=== PATIENT | female | born 1975 | race Caucasian/White ===

== ENCOUNTER 2017-06-19 15:30 | Emergency (ER) | payer MEDICAID ==
[~2017-06-19] VITALS: Ht 152.4 cm; Wt 111.0 kg
[~2017-06-19 15:30] MED LIST: CYCL-1 PO; DEXL60CA3 PO; FAMO20TA44 PO; METH500T PO; OMEP20CA10 PO; ONDA4TAB6 PO; PROC-8 PO
[2017-06-19] MEDS ORDERED: morphine 4 MG/ML inj SYRINge IV ONE ×2 (15:55→16:45)
[2017-06-19] MEDS ORDERED: normal saline 1000ML IV soln IVB ONE (15:55)
[2017-06-19 16:25] LABS: BASOPHILS # (AUTO) 0.1 X10'3 (0-0.2); BASOPHILS % (AUTO) 0.6 % (0-1); EOSINOPHILS # (AUTO) 0.2 X10'3 (0-0.9); EOSINOPHILS % (AUTO) 3.1 % (0-6); HEMATOCRIT 37.1 % (35.0-45.0); HEMOGLOBIN 13.2 g/dl (12.0-16.0); LYMPHOCYTES # (AUTO) 2.9 X10'3 (1.1-4.8); LYMPHOCYTES % (AUTO) 36.5 % (21-51); MEAN CORPUSCULAR HEMOGLOBIN 31.2 PG (27.0-31.0); MEAN CORPUSCULAR HGB CONC 35.5 % (33.0-36.5); MEAN CORPUSCULAR VOLUME 87.7 FL (78-98); MEAN PLATELET VOLUME 7.9 FL (7.4-10.4); MONOCYTES # (AUTO) 0.4 X10'3 (0-0.9); MONOCYTES % (AUTO) 5.4 % (2-12); NEUTROPHILS # (AUTO) 4.3 X10'3 (1.8-7.7); NEUTROPHILS % (AUTO) 54.4 % (42-75); PLATELET COUNT 348 X10'3 (140-440); RED BLOOD COUNT 4.23 X10'6 (4.20-5.60); RED CELL DISTRIBUTION WIDTH 12.3 % (11.5-14.5); WHITE BLOOD COUNT 7.9 X10'3 (4.5-11.0)
[2017-06-19 16:38] LABS: ALANINE AMINOTRANSFERASE 25 U/L (12-78); ALBUMIN 3.7 G/DL (3.4-5.0); ALKALINE PHOSPHATASE 90 IU/L (46-116); ANION GAP 9 (8-16); ASPARTATE AMINO TRANSFERASE 15 U/L (10-37); BILIRUBIN,TOTAL 0.3 MG/DL (0.1-1.0); BLOOD UREA NITROGEN 13 MG/DL (7-18); BUN/CREATININE RATIO 20.3 (6.6-38.0); CALCIUM 8.7 MG/DL (8.5-10.1); CHLORIDE 104 MMOL/L (99-107); CREATININE 0.64 MG/DL (0.40-0.90); GLUCOSE 107 MG/DL (70-104); SODIUM 138 MMOL/L (135-145); TOTAL CARBON DIOXIDE 25.5 MMOL/L (24-32); TOTAL PROTEIN 7.3 G/DL (6.4-8.2); eGFR > 90 ML/MIN
[2017-06-19] MEDS ORDERED: ketorolac trometh. 30mg/ml inj. IV ONE (16:45)
[2017-06-19] MEDS ORDERED: LORazepam 2 mg/ml vial IV ONE (16:45)
[2017-06-19] MEDS ORDERED: HYDR-569 PO (18:42)
[2017-06-19 18:56] VITALS: BP 125/75
== END 2017-06-19 18:57 | disposition home or self-care (01) ==
LOC: ER 15:30
DX: S13.4XXA Sprain of ligaments of cervical spine, initial encounter (principal); S20.20XA Contusion of thorax, unspecified, initial encounter; K21.9 Gastro-esophageal reflux disease without esophagitis; G89.29 Other chronic pain; M19.90 Unspecified osteoarthritis, unspecified site; M06.9 Rheumatoid arthritis, unspecified; Z90.49 Acquired absence of other specified parts of digestive tract; Z79.899 Other long term (current) drug therapy; Z56.0 Unemployment, unspecified; V49.88XA Car occupant (driver) (passenger) injured in other specified transport accidents, initial encounter; Y93.89 Activity, other specified; Y92.488 Other paved roadways as the place of occurrence of the external cause; Y99.8 Other external cause status
CPT/HCPCS: 36415; 71045; 71250; 72125; 80053; 85025; 93005; 96361; 96374; 96375; 96376; 99285; J1885; J2060; J2270; J7030

== ENCOUNTER 2020-10-26 01:36 | Emergency (ER) | payer MEDICAID ==
[~2020-10-26] VITALS: Ht 152.4 cm; Wt 113.2 kg
[~2020-10-26 01:36] MED LIST changes: +HYDR-4383 PO; -OMEP20CA10 PO; +OMEP20CA15 PO
[2020-10-26 01:59] LABS: BASOPHILS # (AUTO) 0.1 X10'3 (0-0.2); BASOPHILS % (AUTO) 1.2 % (0-1); EOSINOPHILS # (AUTO) 0.2 X10'3 (0-0.9); EOSINOPHILS % (AUTO) 2.2 % (0-6); HEMATOCRIT 41.4 % (35.0-45.0); HEMOGLOBIN 14.2 g/dl (12.0-16.0); LYMPHOCYTES # (AUTO) 3.5 X10'3 (1.1-4.8); LYMPHOCYTES % (AUTO) 39.3 % (21-51); MEAN CORPUSCULAR HEMOGLOBIN 30.7 PG (27.0-31.0); MEAN CORPUSCULAR HGB CONC 34.3 g/dL (33.0-36.5); MEAN CORPUSCULAR VOLUME 89.7 FL (78-98); MEAN PLATELET VOLUME 8.5 FL (7.4-10.4); MONOCYTES # (AUTO) 0.6 X10'3 (0-0.9); MONOCYTES % (AUTO) 6.5 % (2-12); NEUTROPHILS # (AUTO) 4.5 X10'3 (1.8-7.7); NEUTROPHILS % (AUTO) 50.8 % (42-75); PLATELET COUNT 313 X10'3 (140-440); RED BLOOD COUNT 4.62 X10'6 (4.20-5.60); RED CELL DISTRIBUTION WIDTH 12.9 % (11.5-14.5); WHITE BLOOD COUNT 8.9 X10'3 (4.5-11.0)
[2020-10-26 02:11] LABS: ALANINE AMINOTRANSFERASE 73 U/L (12-78); ALBUMIN 3.6 G/DL (3.4-5.0); ALBUMIN/GLOBULIN RATIO 0.9 (1.1-1.5); ALKALINE PHOSPHATASE 93 IU/L (46-116); ANION GAP 6 (8-16); ASPARTATE AMINO TRANSFERASE 55 U/L (10-37); BILIRUBIN,TOTAL 0.3 MG/DL (0.1-1.0); BLOOD UREA NITROGEN 13 MG/DL (7-18); BUN/CREATININE RATIO 16.3 (6.6-38.0); CALCIUM 8.7 MG/DL (8.5-10.1); CHLORIDE 104 MMOL/L (99-107); GLUCOSE 174 MG/DL (70-104); POTASSIUM 3.9 MMOL/L (3.5-5.1); SODIUM 140 MMOL/L (135-145); TOTAL CARBON DIOXIDE 29.7 MMOL/L (24-32); TOTAL PROTEIN 7.5 G/DL (6.4-8.2); eGFR 77 ML/MIN
[2020-10-26 02:20] LABS: TROPONIN I < 0.04 NG/ML (0.0-0.05)
[2020-10-26 03:48] VITALS: BP 142/58
[2020-10-26] MEDS ORDERED: DIAZ-351 PO (04:28)
[2020-10-26] MEDS ORDERED: METH-797 PO (04:28)
[2020-10-26] MEDS ORDERED: diazepam 5mg tablet PO ONE (04:35)
[2020-10-26] MEDS ORDERED: ketorolac tromethamine 15mg/ml inj. IM ONE (04:35)
== END 2020-10-26 04:58 | disposition home or self-care (01) ==
LOC: ER 01:36
DX: S16.1XXA Strain of muscle, fascia and tendon at neck level, initial encounter (principal); S29.019A Strain of muscle and tendon of unspecified wall of thorax, initial encounter; M54.2 Cervicalgia; M62.838 Other muscle spasm; M25.512 Pain in left shoulder; M25.511 Pain in right shoulder; G43.909 Migraine, unspecified, not intractable, without status migrainosus; K21.9 Gastro-esophageal reflux disease without esophagitis; G89.29 Other chronic pain; F32.9 Major depressive disorder, single episode, unspecified; Z87.11 Personal history of peptic ulcer disease; Z87.440 Personal history of urinary (tract) infections; Z90.49 Acquired absence of other specified parts of digestive tract; Z98.890 Other specified postprocedural states; Z56.0 Unemployment, unspecified; Z79.899 Other long term (current) drug therapy; X58.XXXA Exposure to other specified factors, initial encounter; Y93.89 Activity, other specified; Y92.89 Other specified places as the place of occurrence of the external cause; Y99.8 Other external cause status
CPT/HCPCS: 36415; 71045; 80053; 83880; 84484; 85025; 93005; 96372; 99285; J1885

== ENCOUNTER 2021-12-19 23:57 | Emergency (ER) | payer MEDICAID ==
[~2021-12-19] VITALS: Ht 152.4 cm; Wt 113.2 kg
[~2021-12-19 23:57] MED LIST changes: +DIAZ-351 PO; +METH-797 PO
[2021-12-20 00:46] LABS: BASOPHILS # (AUTO) 0.1 X10'3 (0-0.2); BASOPHILS % (AUTO) 0.9 % (0-1); EOSINOPHILS # (AUTO) 0.2 X10'3 (0-0.9); EOSINOPHILS % (AUTO) 1.8 % (0-6); HEMATOCRIT 38.3 % (35.0-45.0); HEMOGLOBIN 13.6 g/dl (12.0-16.0); LYMPHOCYTES # (AUTO) 4.9 X10'3 (1.1-4.8); LYMPHOCYTES % (AUTO) 45.2 % (21-51); MEAN CORPUSCULAR HEMOGLOBIN 30.2 PG (27.0-31.0); MEAN CORPUSCULAR HGB CONC 35.5 g/dL (33.0-36.5); MEAN CORPUSCULAR VOLUME 85.1 FL (78-98); MEAN PLATELET VOLUME 7.9 FL (7.4-10.4); MONOCYTES # (AUTO) 0.6 X10'3 (0-0.9); MONOCYTES % (AUTO) 5.2 % (2-12); NEUTROPHILS # (AUTO) 5.1 X10'3 (1.8-7.7); NEUTROPHILS % (AUTO) 46.9 % (42-75); PLATELET COUNT 326 X10'3 (140-440); RED CELL DISTRIBUTION WIDTH 13.2 % (11.5-14.5); WHITE BLOOD COUNT 10.8 X10'3 (4.5-11.0)
[2021-12-20 00:49] LABS: CLARITY,URINE CLEAR (Clear); COLOR,URINE YELLOW (Yellow); GLUCOSE, URINE NEGATIVE (Neg); KETONES,URINE NEGATIVE (Neg); LEUKOCYTE ESTERASE ,URINE NEGATIVE (Neg); NITRITES, URINE NEGATIVE (Neg); OCCULT BLOOD,URINE NEGATIVE (Neg); PH,URINE 7.5 (4.8-8.0); PROTEIN,URINE NEGATIVE (Neg); URINE HCG NEGATIVE (NEG)
[2021-12-20 00:54] LABS: UA COLLECTION TYPE CLN CATCH MIDSTREAM
[2021-12-20 01:01] LABS: ALANINE AMINOTRANSFERASE 39 U/L (12-78); ALBUMIN 3.7 G/DL (3.4-5.0); ALBUMIN/GLOBULIN RATIO 0.9 (1.1-1.5); ALKALINE PHOSPHATASE 135 IU/L (46-116); ANION GAP 9 (8-16); ASPARTATE AMINO TRANSFERASE 22 U/L (10-37); BILIRUBIN,TOTAL 0.4 MG/DL (0.1-1.0); BLOOD UREA NITROGEN 20 MG/DL (7-18); BUN/CREATININE RATIO 24.1 (6.6-38.0); CALCIUM 8.6 MG/DL (8.5-10.1); CHLORIDE 103 MMOL/L (99-107); CREATININE 0.83 MG/DL (0.40-0.90); GLUCOSE 142 MG/DL (70-104); LIPASE 102 U/L (73-393); SODIUM 140 MMOL/L (135-145); TOTAL PROTEIN 7.8 G/DL (6.4-8.2); eGFR 74 ML/MIN
[2021-12-20] MEDS: morphine 4 MG/ML inj SYRINge IV ONE (01:25)
[2021-12-20] MEDS: ondansetron/PF 4mg/2ml inj IV ONE (01:27)
[2021-12-20] MEDS ORDERED: ONDA4TAB12 PO (03:11)
[2021-12-20] MEDS ORDERED: MELO-100 PO (03:11)
[2021-12-20] MEDS ORDERED: LOPE2CAP PO (03:11)
[2021-12-20] MEDS: HYDROcodone/acetaminophen 5mg/325mg tablet PO ONE (03:32)
[2021-12-20] MEDS: ketorolac trometh. 30mg/ml inj. IV ONE (03:32)
[2021-12-20 03:50] VITALS: BP 109/71
== END 2021-12-20 03:52 | disposition home or self-care (01) ==
LOC: ER 23:58
DX: R10.32 Left lower quadrant pain (principal); R11.0 Nausea; R19.7 Diarrhea, unspecified; G43.909 Migraine, unspecified, not intractable, without status migrainosus; K21.9 Gastro-esophageal reflux disease without esophagitis; G89.29 Other chronic pain; F32.A Depression, unspecified; Z87.11 Personal history of peptic ulcer disease; Z87.440 Personal history of urinary (tract) infections; Z90.49 Acquired absence of other specified parts of digestive tract; Z98.890 Other specified postprocedural states; Z56.0 Unemployment, unspecified; Z79.899 Other long term (current) drug therapy
CPT/HCPCS: 36415; 74176; 80053; 81003; 81025; 83690; 85025; 96374; 96375; 99284; J1885; J2270; J2405

== ENCOUNTER 2022-11-29 18:16 | Emergency (ER) | payer MEDICAID ==
[~2022-11-29] VITALS: Ht 152.4 cm; Wt 115.2 kg
[~2022-11-29 18:16] MED LIST changes: +LOPE2CAP PO; +MELO-100 PO; +ONDA4TAB12 PO
[2022-11-29 18:57] VITALS: BP 142/74; TEMP 97.2; O2SAT 98
[2022-11-29] MEDS ORDERED: ketorolac tromethamine 15mg/ml inj. IM ONE (19:45)
[2022-11-29 20:13] VITALS: RESP 18
--- NOTE | 2022-11-29 20:16 | NUR ---
2ML IN RIGHT DELTOID OF TORADOL 2ML IN LEFT DELTOID
[2022-11-29] MEDS ORDERED: NAPR-1154 PO (20:28)
[2022-11-29] MEDS ORDERED: CYCL-394 PO (20:28)
[2022-11-29] MEDS ORDERED: cyclobenzaprine 10mg tablet PO ONE (20:40)
== END 2022-11-29 20:54 | disposition home or self-care (01) ==
LOC: ER 18:17
DX: M54.59 Other low back pain (principal); M25.561 Pain in right knee; W19.XXXA Unspecified fall, initial encounter; Y93.89 Activity, other specified; Y92.89 Other specified places as the place of occurrence of the external cause; Y99.8 Other external cause status
CPT/HCPCS: 72100; 73564; 96372; 99284; J1885; 99285

== ENCOUNTER 2022-11-30 08:23 | Emergency (ER) | payer MEDICAID ==
[~2022-11-30] VITALS: Ht 152.4 cm; Wt 115.2 kg
[~2022-11-30 08:23] MED LIST changes: +CYCL-394 PO; +NAPR-1154 PO
[2022-11-30 08:30] VITALS: BP 161/89; PULSE 90; O2SAT 99
[2022-11-30] MEDS ORDERED: ondansetron/PF 4mg/2ml inj IV ONE (10:00)
[2022-11-30] MEDS ORDERED: morphine 4 MG/ML inj SYRINge IV ONE ×2 (10:00→11:40)
[2022-11-30 11:44] VITALS: RESP 20
== END 2022-11-30 12:02 | disposition home or self-care (01) ==
LOC: ER 08:23
DX: M54.50 Low back pain, unspecified (principal); G43.909 Migraine, unspecified, not intractable, without status migrainosus; K21.9 Gastro-esophageal reflux disease without esophagitis; Z79.899 Other long term (current) drug therapy; Z79.2 Long term (current) use of antibiotics; Z90.49 Acquired absence of other specified parts of digestive tract; Z56.0 Unemployment, unspecified
CPT/HCPCS: 96374; 96375; 96376; 99284; J2270; J2405

== ENCOUNTER 2024-03-08 19:52 | Emergency (ER) | payer MEDICAID ==
[~2024-03-08] VITALS: Ht 152.4 cm; Wt 102.3 kg
[~2024-03-08 19:52] MED LIST changes: -CYCL-394 PO; +ONDA-243 PO; -ONDA4TAB12 PO
[2024-03-08] MEDS: LORazepam 2 mg/ml vial IV ONE (20:15)
[2024-03-08 20:23] LABS: BASOPHILS # (AUTO) 0.1 X10'3 (0-0.2); EOSINOPHILS # (AUTO) 0.1 X10'3 (0-0.9); HEMOGLOBIN 14.2 g/dl (12.0-16.0); MONOCYTES # (AUTO) 0.4 X10'3 (0-0.9)
[2024-03-08 20:24] LABS: BASOPHILS % (AUTO) 1.1 % (0-1); EOSINOPHILS % (AUTO) 1.8 % (0-6); HEMATOCRIT 41.7 % (35.0-45.0); LYMPHOCYTES # (AUTO) 4.7 X10'3 (1.1-4.8); LYMPHOCYTES % (AUTO) 59.4 % (21-51); MEAN CORPUSCULAR HEMOGLOBIN 29.7 PG (27.0-31.0); MEAN CORPUSCULAR HGB CONC 34.2 g/dL (33.0-36.5); MEAN CORPUSCULAR VOLUME 86.8 FL (78-98); MEAN PLATELET VOLUME 8.6 FL (7.4-10.4); MONOCYTES % (AUTO) 4.7 % (2-12); NEUTROPHILS # (AUTO) 2.6 X10'3 (1.8-7.7); PLATELET COUNT 334 X10'3 (140-440); RED CELL DISTRIBUTION WIDTH 13.1 % (11.5-14.5); WHITE BLOOD COUNT 7.9 X10'3 (4.5-11.0)
[2024-03-08 20:34] LABS: ALANINE AMINOTRANSFERASE 24 U/L (12-78); ALBUMIN 3.7 G/DL (3.4-5.0); ALBUMIN/GLOBULIN RATIO 0.9 (1.1-1.5); ALKALINE PHOSPHATASE 113 IU/L (46-116); ANION GAP 12 (8-16); ASPARTATE AMINO TRANSFERASE 15 U/L (10-37); BILIRUBIN,TOTAL 0.7 MG/DL (0.1-1.0); BLOOD UREA NITROGEN 10 MG/DL (7-18); BUN/CREATININE RATIO 11.8 (10.0-20.0); CALCIUM 9.3 MG/DL (8.5-10.1); CHLORIDE 103 MMOL/L (99-107); CREATININE 0.85 MG/DL (0.40-0.90); GLUCOSE 122 MG/DL (70-104); POTASSIUM 3.5 MMOL/L (3.5-5.1); SODIUM 137 MMOL/L (135-145); TOTAL CARBON DIOXIDE 22.1 MMOL/L (24-32); TOTAL PROTEIN 7.7 G/DL (6.4-8.2); eCRCL 58 ML/MIN; eGFR 71 ML/MIN
[2024-03-08 20:42] LABS: PRO BRAIN NATRIURETIC PEPTIDE < 30 PG/ML (0-125)
[2024-03-08 21:01] VITALS: PULSE 78; RESP 17
[2024-03-08] MEDS: ipratropium/albuterol 3ml nebule NEB ONE (21:01)
[2024-03-08 21:03] LABS: PLATELET ESTIMATE NORMAL; TOTAL CELLS COUNTED 100
[2024-03-08 21:06] VITALS: PULSE 75; RESP 16; O2SAT 99
[2024-03-08 21:31] LABS: STREP A SCREEN NEGATIVE (Neg)
[2024-03-08 21:52] VITALS: TEMP 98.1
[2024-03-08] MEDS ORDERED: PRED20TA PO (22:44)
[2024-03-08 22:54] VITALS: BP 137/94; PULSE 85; RESP 16; O2SAT 100
== END 2024-03-08 22:53 | disposition home or self-care (01) ==
LOC: ER 19:52
DX: R07.89 Other chest pain (principal); R06.00 Dyspnea, unspecified; J45.909 Unspecified asthma, uncomplicated; K21.9 Gastro-esophageal reflux disease without esophagitis; Z88.6 Allergy status to analgesic agent; Z88.8 Allergy status to other drugs, medicaments and biological substances; Z87.11 Personal history of peptic ulcer disease; Z87.440 Personal history of urinary (tract) infections; Z90.49 Acquired absence of other specified parts of digestive tract; Z20.822 Contact with and (suspected) exposure to COVID-19
CPT/HCPCS: 36415; 71045; 80053; 83880; 84484; 85007; 85025; 87081; 87811; 87880; 93005; 94640; 96374; 99285; J2060; 94760

== ENCOUNTER 2024-12-02 20:44 | Emergency (ER) | payer BC, MEDICAID ==
[~2024-12-02] VITALS: Ht 152.4 cm; Wt 95.8 kg
[~2024-12-02 20:44] MED LIST changes: -FAMO20TA44 PO; -HYDR-4383 PO; -LOPE2CAP PO; -METH-797 PO; -METH500T PO; -ONDA-243 PO; -ONDA4TAB6 PO; -PROC-8 PO
--- NOTE | 2024-12-02 21:13 | Physician Documentation ---
History of Present Illness ~ Chief Complaint: Weakness Stated Complaint: SHAKING Time Seen by MD: 20:59 Primary Medical Doctor: [facility] HPI This is a very pleasant 49-year-old female who presented for evaluation of new onset tremors for the last three days. No obvious trigger provocation. Tremors appear to be worse when she is attempting to do something. The particular palliating factors. Did not attempt to treat it. No recent medication change, does have history of diabetes but has been history of kidney disease. Was on baclofen but was switched off a month ago. No history of Parkinson's, no head trauma, no focal deficits. Reports bilateral lower extremity weakness. Medication Reconciliation Allergies: Coded Allergies: No Known Allergies (Unverified , 12/02/24) Scheduled Dexlansoprazole (Dexilant), 60 MG PO DAILY, (Reported) Meloxicam* (Meloxicam*), 1 TAB PO DAILY Naproxen (Naprosyn), 1 TAB PO Q12H Omeprazole (Omeprazole), 2 CAP PO BIDAC Scheduled PRN Cyclobenzaprine* (Cyclobenzaprine*), 1 TABLET PO Q8H PRN for muscle spasms Diazepam (Diazepam), 5 MG PO q8h prn PRN for muscle spasms Past Medical History Past Medical History: Headache, Migraine, GERD, Peptic Ulcer Disease, UTI, Chronic Back Pain, Osteoarthritis, Rheumatoid Arthritis, Depression Past Surgical History: cholecystectomy, Alcohol Use: None Drug Use: none Lives In: Home Occupation: unemployed Review of Systems ROS 10 point review of systems was performed and unless noted above in HPI is negative for acute process/complaint. Physical Exam Vital Signs: Temperature: 96.2, Source: Temporal, Heart Rate: 78, Respiratory Rate: 15, BP: 148/97, Pulse Oximetry: 97, Weight: 95.850 General Appearance GENERAL: Awake, alert, oriented, GCS 15, no apparent distress, non-toxic appearing, answers questions, follows commands appropriately. Examined in triage HEENT: Atraumatic, normocephalic, pupils equal, extraocular muscles intact, sclerae anicteric, mucus membranes moist, oropharynx is clear, no stridor. NECK: supple, full active range of motion, trachea midline, no thyromegaly, no lymphadenopathy, no JVD. CARDIOVASCULAR: regular rate/rhythm, no murmurs/gallops/rubs, Pulses are 2+ in all extremities and symmetric. Capillary refill less than 2 seconds. PULMONARY: Nonlabored, good air movement ,no respiratory distress, speaking in full sentences, clear to auscultation bilaterally, no wheezing, no ronchi, no rales, no accessory muscle use. GASTROINTESTINAL: Soft, non-tender, non-distended, normal active bowel sounds, no organomegaly, no pulsatile masses, no CVA tenderness. NEUROLOGIC: Bilateral upper extremity and head very coarse tremor noted. Lucid with normal mental status. Normal facial symmetry. Moves all extremities symmetrically and with purpose. No truncal ataxia. Speech is fluid without evidence of dysarthria or aphasia, no focal deficits appreciated. MUSCULOSKELETAL: There is full range of motion of all extremities. There is no joint pain or joint swelling or joint erythema. There is no muscle pain or tenderness or swelling. EXTREMITIES: warm, well-perfused, no cyanosis, no clubbing, no edema, no acute deformities. Skin: warm, dry, no rashes or lesions, no jaundice, no petechiae orpurpura. No ecchymosis. PSYCHIATRIC: Normal affect, normal insight, normal concentration. Focused exam: [] Progress Results/Orders Results/Orders Orders - SERGO STEWART DO Urinalysis, Cult If Indicated (12/02/24 20:59) Ct Head (12/02/24 20:59) Drug Screen, Urine (12/02/24 20:59) [facility] Prov.Neuro Consult (12/03/24 00:30) Completed Orders - SERGO STEWART DO Electrocardiogram (12/02/24 20:59) Cbc/Diff (12/02/24 20:59) ESR (12/02/24 20:59) LDH (12/02/24 20:59) C-Reactive Protein (12/02/24 20:59) PHOS (12/02/24 20:59) MG (12/02/24 20:59) TSH (12/02/24 20:59) Free T4 (12/02/24 20:59) Hcg Serum Ql (12/02/24 20:59) Ct Head (12/02/24 20:59) Hs Troponin I W Calculations (12/02/24 20:59) CMP (12/02/24 20:59) Ethanol (12/02/24 20:59) Vital Signs 12/02/24 12/02/24 12/02/24 20:53 23:12 23:16 Temp 96.2 98.3 Pulse 78 80 Resp 15 16 16 B/P (MAP) 148/97 114/76 (89) Pulse Ox 97 98 O2 Flow Rate 0 Laboratory Tests Test 12/02/24 21:08 White Blood Count 9.2 Red Blood Count 4.89 Hemoglobin 14.5 Hematocrit 41.3 Mean Corpuscular Volume 84.5 Mean Corpuscular Hemoglobin 29.6 Mean Corpuscular Hemoglobin Concent 35.1 Red Cell Distribution Width 13.4 Platelet Count 321 Mean Platelet Volume 8.5 Neutrophils (%) (Auto) 46.7 Lymphocytes (%) (Auto) 44.1 Monocytes (%) (Auto) 5.1 Eosinophils (%) (Auto) 2.9 Basophils (%) (Auto) 1.2 H Neutrophils # (Auto) 4.3 Lymphocytes # (Auto) 4.1 Monocytes # (Auto) 0.5 Eosinophils # (Auto) 0.3 Basophils # (Auto) 0.1 CBC Comment Erythrocyte Sedimentation Rate 16 Sodium Level 135 Potassium Level 4.2 Chloride Level 102 Carbon Dioxide Level 27.3 Anion Gap 6 L Blood Urea Nitrogen 19 H Creatinine 0.66 Estimated GFR/1.73 m2 > 90 BUN/Creatinine Ratio 28.8 H Glucose Level 106 H Calcium Level 8.8 Phosphorus Level 3.8 Magnesium Level 1.8 Total Bilirubin 0.4 Aspartate Amino Transf (AST/SGOT) 16 Alanine Aminotransferase (ALT/SGPT) 24 Alkaline Phosphatase 116 Lactate Dehydrogenase 173 Troponin I High Sensitivity 7 C-Reactive Protein 0.22 Total Protein 7.3 Albumin 3.5 Globulin 3.8 Albumin/Globulin Ratio 0.9 L Thyroid Stimulating Hormone (TSH) 1.06 Free Thyroxine 0.78 Human Chorionic Gonadotropin, Qual Negative Chemistry Comments Ethyl Alcohol Level < 10 Medical Decision Making Findings Facility Status: [facility], [facility] process The plan was discussed with the patient, who demonstrates clear understanding of the plan and is in agreement with the plan unless otherwise noted in the chart. All questions have been answered, all concerns were addressed unless otherwise documented. I was available throughout their ED stay for frequent reassessment and questions. Differential Diagnoses (considered and possible or likely): [New onset Parkinson's, brain tumor, electrolyte derangement, uremia, less likely drug toxidrome or alcohol withdrawal, baclofen withdrawal has been considerably has been over a month. Essential tremor had also been considered.] ??Differential Diagnoses (considered and unlikely, not requiring evaluation currently): [No evidence of lateralizing sinuses suspect a stroke] MDM Data Please see HPI for the following: Independent Historians and external Records Review. Historian: [Patient] Independent Historians: ?[Record review] Medication Management: [Reviewed medication list] Social History and determinants: [Reviewed] Please see the body of the note for the following: Any independent interpretations of ECG, imaging studies. All vitals signs/haemodynamics, ordered tests were independently reviewed and interpreted by myself. Nursing triage complaint and vitals reviewed, additional nursing notes were reviewed as available and I agree unless otherwise noted or documented in contradiction in the chart Vital Signs: Independently reviewed Labs: Independently interpreted Imaging: Independently interpreted Old Medical Records: Independently reviewed, see [facility] for relevant summary and information Pulse Oximetry: [95%] interpreted as [normal on room air] by me Additionally notably showing: [Hemodynamics reviewed. The patient is not febrile, not tachycardic, no evidence of hypotension respiratory distress. Laboratory studies reviewed. CBC is normal. ESR is not elevated at 16. Chemistry shows dehydration. CRP is normal. TSH and free T4 normal. She is not . Troponin is negative. Ethanol is negative. CT head was obtained showing no acute intracranial abnormality.] Tests considered but not ordered include: [MRI can be done on an inpatient/outpatient basis] Social Determinants of Health Impact: Patient was [facility] [place] to healthcare due to below par ratio of patient to medical providers. [] Comorbid Conditions Impacting Present Evaluation and Care/Treatment: [Diabetes] Management Discussions with other Healthcare Providers: [Tele neurology who examined the patient and feel that she is appropriate for outpatient follow-up and this are likely physiologic tremors] Treatment and Disposition Medication Management (Given or considered): []. See EMR for details Consideration for Hospitalization/Escalation/Deescalation of Care: Admission for observation has been considered, [however the patient is able to tolerate p.o., their symptoms are controlled, they are able to rely on oral medications, and their chief complaint/diagnosis can be managed on outpatient basis.] ?ED Course:?[No clinical deterioration or improvement] ?Shared decision making:?[Patient is hemodynamically stable for discharge home with follow with their primary care provider. [ ] Specific and cautious return precautions provided and discussed with full understanding. Any incidental findings were also discussed and follow up recommendations given. [] All questions answered. Patient/family were able to verbalize back return precautions. Patient/family agree to plan. Copies of imaging and laboratory studies were provided.] Code status:?FULL Please see the full Electronic Medical Record for full details of nursing documentation, medications list, other records of complete past medical history and conditions, vital signs, laboratory studies, and any radiologic study interpretations by radiologists. Portions of this note were completed using mobintent dictation software and as a result there may exist minor errors in spelling. I have reviewed elements of past family and social history and agree as included in note. Departure Disposition: 01 HOME / SELF CARE / HOMELESS Impression: Primary Impression: Tremor Condition: Stable Discharge Instructions: Tremor Additional Instructions: Please follow-up with your primary care provider and get a referral to outpatient neurologist if your tremors continue. Referrals: NO PRIMARY CARE PROVIDER (PCP) Education Educated: Patient, Family Educated regarding: diagnosis, treatment, prognosis, need for follow up Signature Scribe Signature: No scribe Attestation: This note accurately reflects clinical decisions, work performed by myself, Sergo Stewart, SERGO SERRATO DO Dec 02, 2024 21:13
--- NOTE | 2024-12-02 21:20 | ELECTROCARDIOGRAPH REPORT ---
[facility] Test Date: 2024-12-02 Test Time: 21:16:53 Pat Name: LAMBERTO MILLAN Department: [facility]- Patient ID: [id number] Room: Gender: F Battery Assembler: : 1975 Requested By: TRENTON STEWART Order Number: [id number] Reading MD: Dr. Wallace Gomez Measurements Intervals [place] Rate: 75 P: 0 OR: 0 QRS: 45 QRSD: 89 T: 33 QT: 351 QTc: 392 Interpretive Statements Atrial flutter Low voltage, precordial leads Electronically Signed On 12-04-2024 19:28:[address] Wallace Gomez Please click the below link to view image of tracing.
[2024-12-02 21:24] LABS: MEAN PLATELET VOLUME 8.5 FL (7.4-10.4); RED CELL DISTRIBUTION WIDTH 13.4 % (11.5-14.5)
[2024-12-02 21:52] LABS: CREATININE 0.66 MG/DL (0.40-0.90); TOTAL CARBON DIOXIDE 27.3 MMOL/L (24-32); eCRCL 73 ML/MIN; eGFR > 90 ML/MIN
[2024-12-02 22:01] LABS: LACTATE DEHYDROGENASE 173 U/L (81-234); PHOSPHORUS 3.8 MG/DL (2.3-4.5)
--- NOTE | 2024-12-02 22:01 | RADIOLOGY REPORT ---
CLINICAL HISTORY: New onset tremors TECHNIQUE: Helical imaging carried out from skull base to vertex without intravenous contrast. This e xam was performed according to our departmental dose optimization program. Up-to-date CT equipment an d radiation dose reduction techniques are utilized as appropriate. CTDIVol: 60.12+ 0.14 mGy DLP: 1043.99 mGy-cm WID: COMPARISON: None FINDINGS: The ventricles and subarachnoid spaces are normal in size and configuration. There is no midline rosaura ft or mass effect. The tse white matter interfaces are maintained. The basal cisterns are patent. Th ere is no evidence of acute intracranial hemorrhage or extra-axial fluid collection. The mastoid air cells and visualized paranasal sinuses are well-aerated. IMPRESSION: No acute intracranial abnormality.
[2024-12-02 22:10] LABS: ETHANOL < 10 MG/DL (<10)
[2024-12-02 22:12] LABS: HCG SERUM QL NEGATIVE
[2024-12-02 23:12] VITALS: TEMP 98.3
--- NOTE | 2024-12-03 00:52 | [facility] CONSULT REPORT ---
[facility] Procedure Note [facility] Procedure Note Consult [facility] Note # Demographics Consult Type: General Neurology Patient Location: Emergency Room First Name: LAMBERTO Last Name: YANA Date of : 1975 Age: 49 Gender: Female Facility: [facility] Time of Initial Page (): 12/03/2024 00:33 Time of Return Call (): 12/03/2024 00:33 # HPI Chief Complaint: Tremor History: 49 yo F p/w tremor of her arms and head for 3 days. Tremor is intermittent without a clear trigger, but worse when she tries to talk. Denied stress or caffeine overuse. # Exam Mental Status: - awake - alert and oriented x 3 - follows commands Language: - normal speech - no aphasia - no dysarthria Cranial Nerves: - extra ocular movements intact - no facial droop - normal facial sensation Motor: - normal strength - normal bulk - no drift Sensory: - normal sensation Cerebellar: - normal cerebellar exam Additional Neurologic Exam: Low amplitude, arrhythmic, not synchronous arm tremors, distractable # ROS Additional: - complete review of systems otherwise negative # PMH-FH-SH Past Medical History: - Diabetes - migraine # Data Head CT: - no bleed # Assessment Impression: Functional tremor # Plan Other: - I have discussed my recommendations with the referring provider - neurology referral as outpatient # Logistics Attestation of consult completion: The patient is located at: [facility]. Facility staff participated in the visit. I performed this telemedicine visit from my offsite office utilizing interactive 2 way audio and visual telecommunication technology. Total time spent in telemedicine encounter: I spent 18 minutes reviewing clinica l data and/or imaging, obtaining history, examining the patient, communicating with the onsite care team, and in preparation of this report. # Demographics First Name: LAMBERTO Last Name: YANA Facility: [facility] Electronically signed at 12/03/2024 00:51 () by Marychuy Mason MD Neuro Consult Order placed for: Yes MARYCHUY MASON MD Dec 03, 2024 00:51
[2024-12-03 01:00] VITALS: BP 114/70; PULSE 69; RESP 12; O2SAT 99
== END 2024-12-03 00:58 | disposition home or self-care (01) ==
LOC: ER 20:45
DX: R25.1 Tremor, unspecified (principal); R53.1 Weakness; M06.9 Rheumatoid arthritis, unspecified; K21.9 Gastro-esophageal reflux disease without esophagitis; Z87.11 Personal history of peptic ulcer disease; Z87.440 Personal history of urinary (tract) infections; Z90.49 Acquired absence of other specified parts of digestive tract
CPT/HCPCS: 36415; 70450; 80053; 80320; 83615; 83735; 84100; 84439; 84443; 84484; 84703; 85025; 85651; 86140; 93005; 99284